=== PATIENT | male | born 1955 | race Caucasian/White ===

== ENCOUNTER 2018-04-02 07:22 | Inpatient (IN) | payer BC ==
[2018-04-02 08:08] LABS: ADD MAN DIFF? NO
[2018-04-02 08:11] LABS: EOSINOPHILS # 0.2 10^3/ul (0.0-0.5); MEAN PLATELET VOLUME 11.2 fl (7.4-10.4); MONOCYTE # 0.5 10^3/ul (0.3-0.9); NEUTROPHIL # 2.9 10^3/ul (1.6-7.5); POSITIVE DIFF @See below; RED CELL DISTRIBUTION WIDTH 13.8 % (11.5-14.5)
[2018-04-02 08:18] LABS: WHITE BLOOD COUNT 5.3 10^3/ul (4.8-10.8)
[2018-04-02 08:18] LABS: BASOPHILS % 0.4 % (0.0-2.0); EOSINOPHILS % 3.4 % (0.0-7.0); HEMATOCRIT 40.8 % (42.0-52.0); HEMOGLOBIN 13.5 g/dl (14.0-18.0); LYMPHOCYTES # 1.6 10^3/ul (0.8-2.9); LYMPHOCYTES % 30.6 % (15.0-51.0); MEAN CORPUSCULAR HEMOGLOBIN 29.5 pg (29.0-33.0); MEAN CORPUSCULAR HGB CONC 33.1 g/dl (32.0-37.0); MEAN CORPUSCULAR VOLUME 89.1 fl (82.0-101.0); MONOCYTES % 10.1 % (0.0-11.0); NEUTROPHILS % 55.3 % (39.0-77.0); PLATELET COUNT 114 10^3/UL (140-415); RED BLOOD COUNT 4.58 10^6/ul (4.70-6.10)
[2018-04-02 08:31] LABS: INR 1.09; PROTIME 14.3 Sec (11.9-14.9); PT RATIO 1.1
[2018-04-02 08:32] LABS: PARTIAL THROMBOPLASTIN TIME 31.5 Sec (25.0-35.0)
[2018-04-02 08:41] LABS: CHOL/HDL RATIO 4.7 RATIO; HDL CHOLESTEROL 33 mg/dl (30-78); LDL CHOLESTEROL,CALCULATED 110 mg/dl; TRIGLYCERIDES 68 mg/dl (0-149)
[2018-04-02 08:41] LABS: CHOLESTEROL 157 mg/dl (100-200)
[2018-04-02 08:42] LABS: ANION GAP 7 (8-16); BLOOD UREA NITROGEN 14 mg/dl (7-20); CALCIUM 9.1 mg/dl (8.4-10.2); CARBON DIOXIDE 28 mmol/L (21-31); CHLORIDE 110 mmol/L (97-110); CREATININE 0.71 mg/dl (0.61-1.24); GLUCOSE 99 mg/dl (70-220); POTASSIUM 4.1 mmol/L (3.5-5.1); SODIUM 141 mmol/L (135-144)
[2018-04-02] MEDS ORDERED: IODIXANOL LOCM 100 ML BTL (08:47)
[2018-04-02] MEDS ORDERED: MIDAZOLAM 1 MG/ML 2 ML INJ (08:47)
[2018-04-02] MEDS ORDERED: HEPARIN 1000 UNITS/ML 10 ML INJ (08:47)
[2018-04-02] MEDS ORDERED: NITROGLYCERIN (IC) 100 MCG/ML INJ (08:47)
[2018-04-02] MEDS ORDERED: FENTAnyl 50 MCG/ML VIAL (08:47)
[2018-04-02] MEDS ORDERED: VERAPAMIL 5 MG INJ (08:47)
[2018-04-02] MEDS ORDERED: LIDOCAINE 1% (MDV) 20 ML INJ (08:47)
[2018-04-02] MEDS ORDERED: IOHEXOL 350MG/ML 50 ML BTL (09:57)
[2018-04-02] MEDS ORDERED: ASPIRIN 325 MG TAB (10:33)
[2018-04-02] MEDS ORDERED: CLOPIDOGREL 300 MG TAB (10:33)
[2018-04-02] MEDS ORDERED: OXYCODONE/ACETAMINOPHEN (5/325) TAB PO (11:00)
[2018-04-02] MEDS ORDERED: ACETAMINOPHEN 325 MG TAB PO (11:00)
[2018-04-02] MEDS ORDERED: ZOLPIDEM 5 MG TAB PO (11:00)
[2018-04-02] MEDS ORDERED: AL HYDROX/MG HYDROX/SIMETH 30 ML CUP PO (11:00)
[2018-04-02] MEDS ORDERED: ONDANSETRON 4 MG INJ IV (11:00)
[2018-04-02] MEDS: SOD CHLORIDE 0.9% 1,000 ML IV (11:34)
[2018-04-02] MEDS: ATORVASTATIN 80 MG TAB PO (20:48)
[2018-04-03 06:59] LABS: ADD MAN DIFF? NO
[2018-04-03 07:08] LABS: WHITE BLOOD COUNT 5.5 10^3/ul (4.8-10.8)
[2018-04-03 07:08] LABS: BASOPHILS % 0.6 % (0.0-2.0); EOSINOPHILS # 0.2 10^3/ul (0.0-0.5); EOSINOPHILS % 2.9 % (0.0-7.0); HEMATOCRIT 43.4 % (42.0-52.0); HEMOGLOBIN 14.1 g/dl (14.0-18.0); LYMPHOCYTES # 0.8 10^3/ul (0.8-2.9); LYMPHOCYTES % 15.4 % (15.0-51.0); MEAN CORPUSCULAR HEMOGLOBIN 29.1 pg (29.0-33.0); MEAN CORPUSCULAR HGB CONC 32.5 g/dl (32.0-37.0); MEAN CORPUSCULAR VOLUME 89.5 fl (82.0-101.0); MEAN PLATELET VOLUME 11.6 fl (7.4-10.4); MONOCYTE # 0.5 10^3/ul (0.3-0.9); MONOCYTES % 9.7 % (0.0-11.0); NEUTROPHIL # 3.9 10^3/ul (1.6-7.5); PLATELET COUNT 110 10^3/UL (140-415); POSITIVE DIFF @See below; RED BLOOD COUNT 4.85 10^6/ul (4.70-6.10); RED CELL DISTRIBUTION WIDTH 14.1 % (11.5-14.5)
[2018-04-03 07:27] LABS: ANION GAP 13 (8-16); BLOOD UREA NITROGEN 10 mg/dl (7-20); CALCIUM 9.2 mg/dl (8.4-10.2); CARBON DIOXIDE 26 mmol/L (21-31); CHLORIDE 109 mmol/L (97-110); CREATINE KINASE 37 IU/L (23-200); CREATININE 0.72 mg/dl (0.61-1.24); GLUCOSE 92 mg/dl (70-220); POTASSIUM 4.3 mmol/L (3.5-5.1); SODIUM 144 mmol/L (135-144)
[2018-04-03 07:37] LABS: CK INDEX 4.6; CK-MB 1.69 ng/ml (0.0-2.4)
[2018-04-03 07:42] LABS: TROPONIN-I 0.134 ng/ml (0.000-0.120)
[2018-04-03] MEDS: ASPIRIN (EC) 81 MG TAB PO (08:56)
[2018-04-03] MEDS: CLOPIDOGREL 75 MG TAB PO (08:56)
[2018-04-03 10:28] LABS: PHOSPHORUS 2.8 mg/dl (2.5-4.9)
[2018-04-03 10:28] LABS: MAGNESIUM 1.8 mg/dl (1.7-2.5)
[2018-04-03] MEDS: MAGNESIUM SULFATE 2 GM/50 ML 50 ML IVPB (14:09)
== END 2018-04-03 16:52 | disposition home or self-care (01) | DRG 247 ==
LOC: CCL 07:22 → SDS 07:22 → TEL 04-03 13:23
PROC: 4A023N7 Measurement of Cardiac Sampling and Pressure, Left Heart, Percutaneous Approach (ICD-10-PCS; principal; 2018-04-02 08:35)
PROC: 027034Z Dilation of Coronary Artery, One Artery with Drug-eluting Intraluminal Device, Percutaneous Approach (ICD-10-PCS; 2018-04-02 08:35)
PROC: 02703Z6 Dilation of Coronary Artery, One Artery, Bifurcation, Percutaneous Approach (ICD-10-PCS; 2018-04-02 08:35)
PROC: B211YZZ Fluoroscopy of Multiple Coronary Arteries using Other Contrast (ICD-10-PCS; 2018-04-02 08:35)
DX: I25.10 Atherosclerotic heart disease of native coronary artery without angina pectoris (principal); Z95.5 Presence of coronary angioplasty implant and graft; I11.0 Hypertensive heart disease with heart failure; I50.9 Heart failure, unspecified; E78.5 Hyperlipidemia, unspecified; Z79.82 Long term (current) use of aspirin; Z79.02 Long term (current) use of antithrombotics/antiplatelets; E78.00 Pure hypercholesterolemia, unspecified; Z86.79 Personal history of other diseases of the circulatory system
CPT/HCPCS: 71045; 80048; 80061; 82550; 82553; 83735; 84100; 84484; 85025; 85610; 85730; 92929; 93005; 93458